=== PATIENT | male | born 1960 | race Caucasian/White ===

== ENCOUNTER 2021-12-11 09:38 | Inpatient (IN) ==
[2021-12-11] MEDS ORDERED: Naloxone 0.4 MG/ML INJ IVP PRN (13:56)
[2021-12-11] MEDS ORDERED: Ondansetron 4 MG/2 ML VIAL IVP PRN (13:56)
[2021-12-11 14:48] LABS: Calcium 7.7 mg/dL (8.6-10.3); Potassium 3.2 mEq/L (3.5-5.1); Troponin I 0.05 ng/mL (< 0.04)
[2021-12-11] MEDS: *HR* OxyCODONE Immed Rel 5 MG TABLET PO PRN ×2 (15:22→21:35)
[2021-12-11] MEDS: Azithromycin 500 MG in 0.9 % Sodium Chloride 250 ML IVPB SCH (15:22)
[2021-12-11] MEDS: cefTRIAXone 1,000 MG in 0.9 % Sodium Chloride 10 ML IVP SCH (15:22)
[2021-12-11] MEDS: MethylPREDNISolone 40 MG/ML VIAL IVP SCH (15:23)
[2021-12-11] MEDS: 0.9 % Sodium Chloride 1,000 ML IVC SCH (15:23)
[2021-12-11] MEDS: Ipratropium/Albuterol Neb 3 ML IH SCH ×2 (15:50→21:17)
[2021-12-11] MEDS: Nicotine 21 MG PATCH.TD24 TD SCH (16:22)
[2021-12-11] MEDS: Budesonide/Formoterol 160/4.5 1 PUFF INH IH SCH (21:17)
[2021-12-11] MEDS: Baclofen 10 MG TABLET PO SCH (21:35)
[2021-12-11] MEDS: OXYCODONE MYRISTATE 9 MG PO SCH (21:37)
[2021-12-12] MEDS: 0.9 % Sodium Chloride 1,000 ML IVC SCH ×2 (00:43→09:38)
[2021-12-12] MEDS: MethylPREDNISolone 40 MG/ML VIAL IVP SCH ×3 (00:43→21:19)
[2021-12-12] MEDS: Ipratropium/Albuterol Neb 3 ML IH SCH ×4 (03:32→20:24)
[2021-12-12] MEDS: *HR* OxyCODONE Immed Rel 5 MG TABLET PO PRN (05:05)
[2021-12-12 06:07] LABS: Basophils % 0.2 %; Hemoglobin 6.7 g/dL (12.9-16.9); Immature Granulocytes % 2.3 % (0-4); Lymphocytes # 0.2 K/mcL (0.6-4.6); Lymphocytes % 1.5 %; Mean Corpuscular HGB Conc 31.9 g/dL (31.6-35.5); Mean Corpuscular Hemoglobin 32.5 pg (28.0-33.3); Mean Corpuscular Volume 101.9 fL (83.0-100.0); Mean Platelet Volume 10.4 fL (9.4-12.4); Monocytes % 1.2 %; Nucleated Red Blood Cells 0.6 /100 WBC (0); Platelet Count 304 K/mcL (140-400); Red Blood Count 2.06 M/mcL (4.19-5.50); Red Cell Distribution Width 15.2 % (11.5-14.5); Segmented Neutrophils % 94.8 %; White Blood Count 12.1 K/mcL (4.3-11.1)
[2021-12-12 06:25] LABS: Monocytes # 0.2 K/mcL (0.0-1.3); Neutrophils # 11.5 K/mcL (1.6-8.9)
[2021-12-12 06:29] LABS: Calcium 7.9 mg/dL (8.6-10.3); Magnesium 1.2 mg/dL (1.6-2.6); Phosphorous 3.2 mg/dL (2.7-4.5); Potassium 3.5 mEq/L (3.5-5.1); Troponin I 0.04 ng/mL (< 0.04)
[2021-12-12 06:42] LABS: Thyroid Stimulating Hormone 1.549 mcIU/mL (0.340-5.600)
[2021-12-12 06:55] LABS: Anisocytosis 1+ (Not Present); Basophilic Stippling 1+ (Not Present)
[2021-12-12 06:56] LABS: Hypochromasia Present (Not Present); Platelet Estimate Normal (Normal)
[2021-12-12 08:42] LABS: ABG Base Excess -3 mEq/L (-2 to 3); ABG HCO3 24 mEq/L (21-27); ABG Oxygen Saturation 99 % (95-98); ABG PCO2 53 mmHg (35-45); ABG PH 7.27 pH Units (7.32-7.45); ABG PO2 149 mmHg (85-104); ABG TCO2 26 mEq/L (20-26)
[2021-12-12] MEDS: Baclofen 10 MG TABLET PO SCH ×2 (09:13→21:19)
[2021-12-12] MEDS: Pregabalin 75 MG CAPSULE PO SCH (09:13)
[2021-12-12] MEDS: OXYCODONE MYRISTATE 9 MG PO SCH (09:13)
[2021-12-12] MEDS: amLODIPine 5 MG TABLET PO SCH (09:13)
[2021-12-12] MEDS: QUEtiapine Fumarate 25 MG TABLET PO SCH (09:14)
[2021-12-12] MEDS: Finasteride 5 MG TABLET PO SCH (09:14)
[2021-12-12] MEDS: Nicotine 21 MG PATCH.TD24 TD SCH (09:33)
[2021-12-12] MEDS ORDERED: 0.9 % Sodium Chloride 250 ML ONE (10:10)
[2021-12-12] MEDS: Budesonide/Formoterol 160/4.5 1 PUFF INH IH SCH ×2 (10:41→20:25)
[2021-12-12] MEDS: *HR* OxyCODONE ER (12 HR) 10 MG TABLET PO SCH ×2 (11:49→21:19)
[2021-12-12] MEDS: cefTRIAXone 1,000 MG in 0.9 % Sodium Chloride 10 ML IVP SCH (15:04)
[2021-12-12] MEDS: Azithromycin 500 MG in 0.9 % Sodium Chloride 250 ML IVPB SCH (15:08)
[2021-12-12] MEDS: Pantoprazole 40 MG VIAL IVP SCH (16:49)
[2021-12-12 17:15] LABS: Hematocrit 23.1 % (37.5-50.1); Hemoglobin 7.5 g/dL (12.9-16.9)
[2021-12-13] MEDS: 0.9 % Sodium Chloride 1,000 ML IVC SCH (02:23)
[2021-12-13 02:56] LABS: Basophils % 0.3 %; Hematocrit 22.2 % (37.5-50.1); Hemoglobin 7.4 g/dL (12.9-16.9); Immature Granulocytes % 2.3 % (0-4); Lymphocytes # 0.2 K/mcL (0.6-4.6); Lymphocytes % 1.5 %; Mean Corpuscular HGB Conc 33.3 g/dL (31.6-35.5); Mean Corpuscular Hemoglobin 33.2 pg (28.0-33.3); Mean Corpuscular Volume 99.6 fL (83.0-100.0); Mean Platelet Volume 10.8 fL (9.4-12.4); Monocytes # 0.3 K/mcL (0.0-1.3); Monocytes % 2.6 %; Neutrophils # 10.2 K/mcL (1.6-8.9); Nucleated Red Blood Cells 0.6 /100 WBC (0); Platelet Count 291 K/mcL (140-400); Red Blood Count 2.23 M/mcL (4.19-5.50); Red Cell Distribution Width 17.3 % (11.5-14.5); Segmented Neutrophils % 93.3 %; White Blood Count 10.9 K/mcL (4.3-11.1)
[2021-12-13 03:20] LABS: BUN/Creatinine Ratio 23 (6-26); Blood Urea Nitrogen 31 mg/dL (8-23); Calcium 8.2 mg/dL (8.6-10.3); Carbon Dioxide 25 mEq/L (23-29); Chloride 107 mEq/L (98-107); Glucose 119 mg/dL (70-105); Magnesium 1.4 mg/dL (1.6-2.6); Osmolality,Calculated 298 (280-300); Potassium 3.5 mEq/L (3.5-5.1); Sodium 140 mEq/L (136-145); eGFR For African Americans > 60 (> 60); eGFR For Non-African Americans 53 (> 60)
[2021-12-13 03:43] LABS: Platelet Estimate Normal (Normal)
[2021-12-13 03:44] LABS: Anisocytosis 1+ (Not Present)
[2021-12-13] MEDS: Ipratropium/Albuterol Neb 3 ML IH SCH ×3 (03:47→16:06)
[2021-12-13] MEDS: Pantoprazole 40 MG VIAL IVP SCH (06:03)
[2021-12-13] MEDS: *HR* OxyCODONE ER (12 HR) 10 MG TABLET PO SCH (09:19)
[2021-12-13] MEDS: Pregabalin 75 MG CAPSULE PO SCH (09:19)
[2021-12-13] MEDS: amLODIPine 5 MG TABLET PO SCH (09:19)
[2021-12-13] MEDS: Nicotine 21 MG PATCH.TD24 TD SCH (09:19)
[2021-12-13] MEDS: QUEtiapine Fumarate 25 MG TABLET PO SCH (09:19)
[2021-12-13] MEDS: Baclofen 10 MG TABLET PO SCH (09:19)
[2021-12-13] MEDS: MethylPREDNISolone 40 MG/ML VIAL IVP SCH (09:19)
[2021-12-13] MEDS: Finasteride 5 MG TABLET PO SCH (09:19)
[2021-12-13] MEDS: Budesonide/Formoterol 160/4.5 1 PUFF INH IH SCH (10:42)
[2021-12-13] MEDS: Azithromycin 500 MG in 0.9 % Sodium Chloride 250 ML IVPB SCH (15:54)
[2021-12-13] MEDS: cefTRIAXone 1,000 MG in 0.9 % Sodium Chloride 10 ML IVP SCH (15:55)
[2021-12-13 16:08] VITALS: BP 156/86; PULSE 87; TEMP 98.1
[2021-12-13 17:29] VITALS: O2SAT 92
== END 2021-12-13 17:50 | disposition left against medical advice (07) | DRG 193 ==
LOC: 3ANU → SUATTDRO 12:51
PROVIDERS: ADMIT Pharmacist; ATTEND Family Medicine